=== PATIENT | female | born 1965 | race Caucasian/White ===

== ENCOUNTER 2025-02-12 10:22 | Emergency (ER) | payer OTHER ==
[~2025-02-12] VITALS: Ht 160 cm; Wt 84.0 kg
[2025-02-12 10:25] VITALS: O2SAT 99
[2025-02-12] MEDS: LIDOCAINE HCL 1% 20ML VIAL INFIL SCH (11:59)
[2025-02-12 12:47] VITALS: BP 135/76; PULSE 69; RESP 16; TEMP 37.1; O2SAT 100
== END 2025-02-12 12:50 | disposition home or self-care (01) ==
LOC: ER 10:22
DX: S41.111A Laceration without foreign body of right upper arm, initial encounter (principal); S50.811A Abrasion of right forearm, initial encounter; V43.52XA Car driver injured in collision with other type car in traffic accident, initial encounter; Y93.89 Activity, other specified; Y92.89 Other specified places as the place of occurrence of the external cause; Y99.8 Other external cause status
CPT/HCPCS: 73130; 12002; 99283; J2003; Z7610